=== PATIENT | female | born 1935 | race Caucasian/White ===

== ENCOUNTER 2017-12-18 11:58 | Emergency (ER) | payer OTHER ==
[~2017-12-18] VITALS: Ht 177.8 cm; Wt 130.6 kg
[~2017-12-18 11:58] MED LIST: ACTOS15 MG PO; ADVAIR 500/501 DISK IH; ADVAIR HFA120 INHALA IH; ALDACTONE25 MG PO; ASPIR-LOW81 MG PO; CARDIZEM90 MG PO; CARDURA4 MG PO; CEFTIN500 MG PO; COLACE100 MG PO; Cardizem CD,LA,Cartia,Tiazac,Dilacor,Taztia PO; DAPSONE25 MG PO; DIGOXIN250 MCG PO; DILTIAZEM 24HR120 MG PO; DILTIAZEM 24HR240 MG PO; DOXYCYCLINE HY100 M3 PO; DUONEB 2.5-0.5 M3 ML AEROSOL; ELIQUIS2.5 MG PO; ENDOCET 5-3251 EACH PO; FIORICET 50-301 EACH PO; FLONASE16 G1 BOTH NARES; FUROSEMIDE20 MG PO; FUROSEMIDE40 MG PO; GLIPIZIDE10 MG PO; GLUCOPHAGE XR,500 MG PO; GLUCOTROL XL10 MG PO; HYDROCODON-ACE1 EAC7 PO; HYZAAR 100-21 TABLET PO; ILOTYCIN1 GM RIGHT EYE; LEVOFLOXACIN500 MG PO; LOPRESSOR25 MG PO; LOPRESSOR50 MG PO; LORTAB 5-325 M1 EACH PO; LOSARTAN POTAS100 MG PO; LOVENOX40 MG/0.4 SC; METFORMIN HCL500 MG PO; METOPROLOL TART25 MG PO; MOTRIN600 MG PO; NORVASC10 MG PO; PRAVASTATIN SOD80 MG PO; PREDNISONE20 MG PO; PROAIR HFA8.5 GM IH; PROVENTIL,2.5 MG/0.5 IH; SPIRONOLACTONE25 MG PO; SYNTHROID50 MCG PO; THERA TEARS30 ML BOTH EYES; Tums,OsCal PO; VENTOLIN HFA18 GM IH; VIGAMOX 0.60 DROP/3 BOTH EYES; ZOCOR40 MG PO
[2017-12-18 12:38] LABS: HEMOGLOBIN 10.1 G/DL (11.9-15.5); MCHC 31.6 G/DL (30.0-36.0); RBC DIS.WIDTH-CV 14.6 % (11.8-14.6); RBC DIS.WIDTH-SD 47.2 % (39-53); RED BLOOD COUNT 3.61 M/uL (3.80-5.20); WHITE BLOOD COUNT 9.5 K/uL (4.1-10.2)
[2017-12-18 12:43] LABS: MCV 88.6 FL (83-99)
[2017-12-18 13:04] LABS: TROP-I INTERPRETATION NEGATIVE; TROPONIN-I 0.02 ng/mL (0.0-0.30)
[2017-12-18 13:05] LABS: CHLORIDE 88 MEQ/L (99-109); CREATININE 1.5 MG/DL (0.6-1.3); GFR ESTIMATE (CALCULATED) 35 mL/min/; GLUCOSE 94 mg/dL (70-99); SODIUM 127 MEQ/L (136-147); UREA NITROGEN (BUN) 33 mg/dL (9-23)
[2017-12-18 13:21] LABS: PLAT.SUFFICIENCY ADEQUATE; PLATELET COUNT 200 K/uL (156-360)
[2017-12-18 14:15] LABS: APPEARANCE CLEAR ((CLEAR)); BILIRUBIN NEGATIVE; BLOOD NEGATIVE; COLOR YELLOW ((YELLOW)); GLUCOSE (STRIP) NEGATIVE; KETONES NEGATIVE; LEUKOCYTES SMALL; NITRITE NEGATIVE; PROTEIN (STRIP) NEGATIVE; SPECIFIC GRAVITY 1.012 (1.000-1.030); UROBILINOGEN 0.2 MG/DL (0.2-1.0)
[2017-12-18 14:22] LABS: BACTERIA RARE /HPF; EPITHELIAL CELLS 2+ /HPF; HYALINE CASTS 0-5 /LPF; MUCUS TRACE /LPF; RED BLOOD CELLS 0-5 /HPF (0-5); UCUL ADDED? NO; WHITE BLOOD CELLS 0-5 /HPF (0-5)
[2017-12-18] MEDS ORDERED: BACTRIM,SEPT1 TABLET PO (14:24)
[2017-12-18 15:54] VITALS: BP 80/46
== END 2017-12-18 15:56 | disposition home or self-care (01) ==
LOC: EME → EDBD 11:58 → EME 11:58 → EDSEX 11:58 → EME 15:56
PROVIDERS: Emergency Medicine Emergency Medical Services
DX: R41.82 Altered mental status, unspecified (principal); T40.2X1A Poisoning by other opioids, accidental (unintentional), initial encounter; N39.0 Urinary tract infection, site not specified; G93.89 Other specified disorders of brain; R09.02 Hypoxemia; J44.1 Chronic obstructive pulmonary disease with (acute) exacerbation; I48.91 Unspecified atrial fibrillation; R94.31 Abnormal electrocardiogram [ECG] [EKG]; J90 Pleural effusion, not elsewhere classified; I10 Essential (primary) hypertension; E11.9 Type 2 diabetes mellitus without complications; K21.9 Gastro-esophageal reflux disease without esophagitis; E78.5 Hyperlipidemia, unspecified; F32.9 Major depressive disorder, single episode, unspecified; Z99.81 Dependence on supplemental oxygen; Z79.84 Long term (current) use of oral hypoglycemic drugs; Z79.891 Long term (current) use of opiate analgesic; Z79.01 Long term (current) use of anticoagulants; Z86.79 Personal history of other diseases of the circulatory system; Z98.890 Other specified postprocedural states; Z90.49 Acquired absence of other specified parts of digestive tract
CPT/HCPCS: 70450; 71046; 80048; 81003; 83880; 84484; 85027; 93005; 99281; 99284; J7040

== ENCOUNTER 2017-12-24 16:33 | Inpatient (IN) | payer OTHER ==
[~2017-12-24] VITALS: Ht 170.2 cm; Wt 138.2 kg
[~2017-12-24 16:33] MED LIST changes: +BACTRIM,SEPT1 TABLET PO; -METOPROLOL TART25 MG PO
[2017-12-24 18:13] LABS: HEMATOCRIT 30.2 % (36.0-46.0); HEMOGLOBIN 9.8 G/DL (11.9-15.5); MCH 27.8 PG (29.0-34.0); MCHC 32.5 G/DL (30.0-36.0); MCV 85.6 FL (83-99); RBC DIS.WIDTH-CV 14.6 % (11.8-14.6); RBC DIS.WIDTH-SD 45.6 % (39-53); RED BLOOD COUNT 3.53 M/uL (3.80-5.20); WHITE BLOOD COUNT 21.5 K/uL (4.1-10.2)
[2017-12-24 18:21] LABS: ALBUMIN 3.3 g/dL (3.2-4.8)
[2017-12-24 18:22] LABS: CHLORIDE 89 mEq/L (99-109); SODIUM 124 mEq/L (136-147)
[2017-12-24 18:24] LABS: TOTAL PROTEIN 6.5 g/dL (6.4-8.3)
[2017-12-24 18:25] LABS: GLUCOSE 52 mg/dL (70-99)
[2017-12-24 18:26] LABS: TOTAL BILIRUBIN 0.4 mg/dL (0.0-1.0)
[2017-12-24 18:27] LABS: ALKALINE PHOSPHATASE 70 IU/L (3-129)
[2017-12-24 18:28] LABS: CREATININE 1.7 mg/dL (0.6-1.3); GFR ESTIMATE (CALCULATED) 30 mL/min/
[2017-12-24 18:29] LABS: AST (GOT) 25 IU/L (2-34); UREA NITROGEN (BUN) 29 mg/dL (9-23)
[2017-12-24 18:31] LABS: ALT (GPT) 18 IU/L (3-49)
[2017-12-24 18:37] LABS: TROP-I INTERPRETATION NEGATIVE; TROPONIN-I 0.01 ng/mL (0.0-0.30)
[2017-12-24] MEDS ORDERED: COZAAR100 MG PO (18:49)
[2017-12-24] MEDS ORDERED: LASIX40 MG PO (18:59)
[2017-12-24] MEDS ORDERED: CARDIZEM CD,CA240 MG PO (19:06)
[2017-12-24] MEDS ORDERED: TYLENOL EXTRA500 MG PO (19:07)
[2017-12-24] MEDS ORDERED: BENADRYL ALLERG25 MG PO (19:08)
[2017-12-24] MEDS ORDERED: SLEEP AID25 M1 PO (19:09)
[2017-12-24 19:23] LABS: THYROTROPIN (TSH) 2.2 MIU/L (0.4-5.5)
[2017-12-24 19:25] LABS: PLAT.SUFFICIENCY ADEQUATE; PLATELET COUNT 218 K/uL (156-360)
[2017-12-24 20:00] LABS: APPEARANCE CLEAR ((CLEAR)); BILIRUBIN NEGATIVE; BLOOD NEGATIVE; COLOR YELLOW ((YELLOW)); GLUCOSE (STRIP) NEGATIVE; KETONES NEGATIVE; LEUKOCYTES NEGATIVE; NITRITE NEGATIVE; PROTEIN (STRIP) NEGATIVE; SPECIFIC GRAVITY 1.013 (1.000-1.030); UCUL ADDED? NO
[2017-12-25] VITALS (22 sets, daily range): BP systolic 80–144; BP diastolic 22–100
[2017-12-25 05:34] LABS: HEMATOCRIT 28.1 % (36.0-46.0); HEMOGLOBIN 8.8 G/DL (11.9-15.5); MCH 26.6 PG (29.0-34.0); MCHC 31.3 G/DL (30.0-36.0); MCV 84.9 FL (83-99); PLATELET COUNT 212 K/uL (156-360); RBC DIS.WIDTH-CV 14.7 % (11.8-14.6); RBC DIS.WIDTH-SD 45.8 % (39-53); RED BLOOD COUNT 3.31 M/uL (3.80-5.20); WHITE BLOOD COUNT 11.1 K/uL (4.1-10.2)
[2017-12-25 06:13] LABS: CHLORIDE 90 MEQ/L (99-109); CREATININE 1.6 MG/DL (0.6-1.3); GFR ESTIMATE (CALCULATED) 33 mL/min/; PHOSPHORUS 3.9 mg/dL (2.5-4.9); POTASSIUM 5.1 MEQ/L (3.7-5.4); SODIUM 125 MEQ/L (136-147); UREA NITROGEN (BUN) 28 mg/dL (9-23)
[2017-12-25 06:16] LABS: GLUCOSE 107 mg/dL (70-99)
[2017-12-26] VITALS (22 sets, daily range): BP systolic 82–141; BP diastolic 42–97
[2017-12-26 10:19] LABS: HEMOGLOBIN A1c (GLYCOHEMOGLOB) 6.1 % (Below 5.7)
[2017-12-26 10:42] LABS: BASOPHIL (%) 0 % (0-1); EOSINOPHIL (%) 0 % (0-5); HEMATOCRIT 32.2 % (36.0-46.0); HEMOGLOBIN 10.1 G/DL (11.9-15.5); IMMATURE GRANULOCYTE (%) 0.5 % (0.0-0.7); LYMPHOCYTE (%) 4.5 % (15-42); LYMPHOCYTE COUNT 0.3 K/uL (1.0-2.8); MCH 27.2 PG (29.0-34.0); MCHC 31.4 G/DL (30.0-36.0); MCV 86.8 FL (83-99); MONOCYTE COUNT 0.2 K/uL (0-0.8); NEUTROPHIL COUNT 6.8 K/uL (1.8-6.4); PLATELET COUNT 229 K/uL (156-360); RBC DIS.WIDTH-CV 14.9 % (11.8-14.6); RBC DIS.WIDTH-SD 47.7 % (39-53); RED BLOOD COUNT 3.71 M/uL (3.80-5.20); WHITE BLOOD COUNT 7.3 K/uL (4.1-10.2)
[2017-12-26 11:03] LABS: CHLORIDE 91 MEQ/L (99-109); CREATININE 1.5 MG/DL (0.6-1.3); GFR ESTIMATE (CALCULATED) 35 mL/min/; GLUCOSE 225 mg/dL (70-99); MAGNESIUM 2.1 mg/dl (1.3-2.7); PHOSPHORUS 3.9 mg/dL (2.5-4.9); POTASSIUM 5.6 MEQ/L (3.7-5.4); SODIUM 124 MEQ/L (136-147); UREA NITROGEN (BUN) 24 mg/dL (9-23)
[2017-12-26 19:16] LABS: BASE EXCESS -1.8 mEq/L (-3 to +3); CARBOXY HGB 1.9 % (0-5); PCO2 69 mm Hg (35-45); PO2 76 mm Hg (80-100)
[2017-12-26 19:18] LABS: COMMENTS - BLOOD GASES A+C+; DEVICE VENTI; FI02 50 %; O2 FLOW 12 L/MIN; SITE RR; TOTAL RESP RATE 16 resp/min
[2017-12-26 23:09] LABS: CHLORIDE 91 MEQ/L (99-109); CREATININE 1.7 MG/DL (0.6-1.3); GFR ESTIMATE (CALCULATED) 30 mL/min/; GLUCOSE 262 mg/dL (70-99); POTASSIUM 5.7 MEQ/L (3.7-5.4); SODIUM 123 MEQ/L (136-147); TRIGLYCERIDES 110 MG/DL (Normal: <150); UREA NITROGEN (BUN) 31 mg/dL (9-23)
[2017-12-26 23:22] LABS: PCO2 51 mm Hg (35-45); PO2 80 mm Hg (80-100); pH 7.32 (7.35-7.45)
[2017-12-26 23:23] LABS: BASE EXCESS -0.2 mEq/L (-3 to +3); BICARBONATE 26.3 mEq/L (22-26); CARBOXY HGB 1.2 % (0-5); COMMENTS - BLOOD GASES C+A+; DEVICE VENTILATOR; FI02 50 %; MECHANICAL RATE 16 resp/min; METHEMOGLOBIN 0.9 % (0-1.5); MODE AC; PEEP 5 CM/H20; SITE RB; TIDAL VOLUME 400 ML; TOTAL RESP RATE 16 resp/min
[2017-12-27] VITALS (23 sets, daily range): BP systolic 91–132; BP diastolic 48–74
[2017-12-27 01:40] LABS: INTER. NORMALIZED RATIO 1.1
[2017-12-27 01:42] LABS: PTT 26.7 SEC (25-37)
[2017-12-27 05:32] LABS: BASE EXCESS -1.4 mEq/L (-3 to +3); BICARBONATE 25.5 mEq/L (22-26); CARBOXY HGB 2.3 % (0-5); COMMENTS - BLOOD GASES C+A+; METHEMOGLOBIN 0.6 % (0-1.5); PCO2 53 mm Hg (35-45); PO2 65 mm Hg (80-100); SITE RB
[2017-12-27 05:33] LABS: DEVICE VENTILATOR; FI02 50 %; MECHANICAL RATE 16 resp/min; MODE AC; PEEP 5 CM/H20; TIDAL VOLUME 400 ML; TOTAL RESP RATE 18 resp/min; pH 7.29 (7.35-7.45)
[2017-12-27 05:39] LABS: BASOPHIL (%) 0 % (0-1); EOSINOPHIL (%) 0.1 % (0-5); HEMATOCRIT 32.6 % (36.0-46.0); HEMOGLOBIN 9.8 G/DL (11.9-15.5); LYMPHOCYTE (%) 3.9 % (15-42); LYMPHOCYTE COUNT 0.3 K/uL (1.0-2.8); MCH 26.6 PG (29.0-34.0); MCHC 30.1 G/DL (30.0-36.0); MCV 88.3 FL (83-99); MONOCYTE (%) 6.7 % (3-12); MONOCYTE COUNT 0.6 K/uL (0-0.8); NEUTROPHIL (%) 88.3 % (45-76); NEUTROPHIL COUNT 7.2 K/uL (1.8-6.4); PLATELET COUNT 209 K/uL (156-360); RBC DIS.WIDTH-CV 14.7 % (11.8-14.6); RBC DIS.WIDTH-SD 47.7 % (39-53); RED BLOOD COUNT 3.69 M/uL (3.80-5.20); WHITE BLOOD COUNT 8.2 K/uL (4.1-10.2)
[2017-12-27 06:03] LABS: ALKALINE PHOSPHATASE 45 IU/L (3-129); ALT (GPT) 20 IU/L (3-49); AST (GOT) 17 IU/L (2-34); CHLORIDE 91 MEQ/L (99-109); CREATININE 1.9 MG/DL (0.6-1.3); GFR ESTIMATE (CALCULATED) 27 mL/min/; GLUCOSE 235 mg/dL (70-99); MAGNESIUM 2.2 mg/dl (1.3-2.7); PHOSPHORUS 4.4 mg/dL (2.5-4.9); POTASSIUM 5.3 MEQ/L (3.7-5.4); SODIUM 124 MEQ/L (136-147); TOTAL BILIRUBIN 0.5 MG/DL (0.0-1.0); TOTAL PROTEIN 5.9 G/DL (6.4-8.3); UREA NITROGEN (BUN) 35 mg/dL (9-23)
[2017-12-28] VITALS (22 sets, daily range): BP systolic 94–158; BP diastolic 47–82
[2017-12-28 05:08] LABS: BASE EXCESS 0.8 mEq/L (-3 to +3); BICARBONATE 25.3 mEq/L (22-26); CARBOXY HGB 1.2 % (0-5); COMMENTS - BLOOD GASES C+A+; DEVICE VENTILATOR; FI02 30 %; METHEMOGLOBIN 0.5 % (0-1.5); MODE AC; PCO2 39 mm Hg (35-45); PO2 97 mm Hg (80-100); SITE RR; pH 7.42 (7.35-7.45)
[2017-12-28 05:09] LABS: MECHANICAL RATE 16 resp/min; PEEP 5 CM/H20; TIDAL VOLUME 400 ML; TOTAL RESP RATE 16 resp/min
[2017-12-28 05:15] LABS: BASOPHIL (%) 0 % (0-1); EOSINOPHIL (%) 0.1 % (0-5); HEMATOCRIT 31.9 % (36.0-46.0); IMMATURE GRANULOCYTE (%) 0.6 % (0.0-0.7); LYMPHOCYTE COUNT 0.3 K/uL (1.0-2.8); MCH 26.7 PG (29.0-34.0); MCHC 31.3 G/DL (30.0-36.0); MCV 85.3 FL (83-99); MONOCYTE (%) 5.9 % (3-12); MONOCYTE COUNT 0.5 K/uL (0-0.8); NEUTROPHIL (%) 89.4 % (45-76); NEUTROPHIL COUNT 7.1 K/uL (1.8-6.4); PLATELET COUNT 225 K/uL (156-360); RBC DIS.WIDTH-CV 14.6 % (11.8-14.6); RBC DIS.WIDTH-SD 45.7 % (39-53); RED BLOOD COUNT 3.74 M/uL (3.80-5.20); WHITE BLOOD COUNT 7.9 K/uL (4.1-10.2)
[2017-12-28 05:44] LABS: ALBUMIN 3.2 G/DL (3.2-4.8); ALKALINE PHOSPHATASE 48 IU/L (3-129); ALT (GPT) 26 IU/L (3-49); AST (GOT) 21 IU/L (2-34); CHLORIDE 97 MEQ/L (99-109); GLUCOSE 205 mg/dL (70-99); POTASSIUM 4.8 MEQ/L (3.7-5.4); SODIUM 129 MEQ/L (136-147); TOTAL PROTEIN 5.9 G/DL (6.4-8.3); UREA NITROGEN (BUN) 30 mg/dL (9-23)
[2017-12-28 05:55] LABS: CREATININE 1.3 MG/DL (0.6-1.3); GFR ESTIMATE (CALCULATED) 41 mL/min/; TOTAL BILIRUBIN 0.8 MG/DL (0.0-1.0)
[2017-12-28 15:17] LABS: HIGH-SENS C-REACTIVE PROTEIN 0.55 MG/DL (0.02-0.20)
[2017-12-28 20:55] LABS: BICARBONATE 25.3 mEq/L (22-26); CARBOXY HGB 1.2 % (0-5); COMMENTS - BLOOD GASES C+; DEVICE NC; METHEMOGLOBIN 1.3 % (0-1.5); O2 FLOW 3 L/MIN; PCO2 48 mm Hg (35-45); PO2 84 mm Hg (80-100); SITE LR; pH 7.33 (7.35-7.45)
[2017-12-29] VITALS (14 sets, daily range): BP systolic 103–152; BP diastolic 54–87
[2017-12-29 05:38] LABS: BASOPHIL (%) 0 % (0-1); EOSINOPHIL (%) 0 % (0-5); HEMATOCRIT 32.8 % (36.0-46.0); HEMOGLOBIN 10.1 G/DL (11.9-15.5); IMMATURE GRANULOCYTE (%) 0.6 % (0.0-0.7); LYMPHOCYTE (%) 2.8 % (15-42); LYMPHOCYTE COUNT 0.2 K/uL (1.0-2.8); MCH 26.6 PG (29.0-34.0); MCHC 30.8 G/DL (30.0-36.0); MCV 86.5 FL (83-99); MONOCYTE (%) 5.3 % (3-12); MONOCYTE COUNT 0.5 K/uL (0-0.8); NEUTROPHIL (%) 91.3 % (45-76); NEUTROPHIL COUNT 7.9 K/uL (1.8-6.4); PLATELET COUNT 238 K/uL (156-360); RBC DIS.WIDTH-CV 14.8 % (11.8-14.6); RBC DIS.WIDTH-SD 47.4 % (39-53); RED BLOOD COUNT 3.79 M/uL (3.80-5.20); WHITE BLOOD COUNT 8.6 K/uL (4.1-10.2)
[2017-12-29 06:02] LABS: ALBUMIN 3.2 G/DL (3.2-4.8); ALKALINE PHOSPHATASE 46 IU/L (3-129); ALT (GPT) 50 IU/L (3-49); AST (GOT) 39 IU/L (2-34); CHLORIDE 98 MEQ/L (99-109); CREATININE 1.3 MG/DL (0.6-1.3); GFR ESTIMATE (CALCULATED) 41 mL/min/; GLUCOSE 213 mg/dL (70-99); MAGNESIUM 2.4 mg/dl (1.3-2.7); PHOSPHORUS 3.9 mg/dL (2.5-4.9); POTASSIUM 4.5 MEQ/L (3.7-5.4); SODIUM 131 MEQ/L (136-147); TOTAL PROTEIN 5.9 G/DL (6.4-8.3); UREA NITROGEN (BUN) 32 mg/dL (9-23)
[2017-12-29 06:24] LABS: HIGH-SENS C-REACTIVE PROTEIN 0.39 MG/DL (0.02-0.20)
[2017-12-29 11:12] LABS: HEPATITIS B SURFACE ANTIGEN Nonreactive; HEPATITIS C ANTIBODY Nonreactive
[2017-12-29 11:13] LABS: ANTI-HEPATITIS A VIRUS (IGM) Nonreactive
[2017-12-29 11:14] LABS: ANTI-HEPATITIS B CORE (IGM) Nonreactive
[2017-12-29 14:44] LABS: COMMENTS - BLOOD GASES A+C+; O2 FLOW 3 L/MIN; SITE R RADIAL
[2017-12-29 14:45] LABS: DEVICE NASCAN; PCO2 58 mm Hg (35-45); PO2 64 mm Hg (80-100); TOTAL RESP RATE 26 resp/min; pH 7.24 (7.35-7.45)
[2017-12-29 14:46] LABS: BASE EXCESS -3.1 mEq/L (-3 to +3); BICARBONATE 24.9 mEq/L (22-26); CARBOXY HGB 1.7 % (0-5); METHEMOGLOBIN 0.9 % (0-1.5)
[2017-12-29 16:24] LABS: COMMENTS - BLOOD GASES A+C+; DEVICE MASK VENT; FI02 30 %; MODE PRESSURE SUP; SITE R RADIAL; TOTAL RESP RATE 16 resp/min
[2017-12-29 16:25] LABS: BICARBONATE 24.7 mEq/L (22-26); CARBOXY HGB 1.5 % (0-5); METHEMOGLOBIN 0.8 % (0-1.5); PCO2 48 mm Hg (35-45); PEEP 5 CM/H20; PO2 93 mm Hg (80-100); PRES. SUPPORT 12 CM/H2O; pH 7.32 (7.35-7.45)
[2017-12-29 16:26] LABS: BASE EXCESS -1.6 mEq/L (-3 to +3)
[2017-12-30] VITALS (20 sets, daily range): BP systolic 97–167; BP diastolic 43–83
[2017-12-30 05:29] LABS: BASOPHIL (%) 0 % (0-1); EOSINOPHIL (%) 0 % (0-5); HEMATOCRIT 31.6 % (36.0-46.0); HEMOGLOBIN 9.9 G/DL (11.9-15.5); IMMATURE GRANULOCYTE (%) 0.7 % (0.0-0.7); LYMPHOCYTE (%) 2.9 % (15-42); LYMPHOCYTE COUNT 0.2 K/uL (1.0-2.8); MCH 26.8 PG (29.0-34.0); MCHC 31.3 G/DL (30.0-36.0); MCV 85.4 FL (83-99); MONOCYTE (%) 4.4 % (3-12); MONOCYTE COUNT 0.4 K/uL (0-0.8); NEUTROPHIL COUNT 7.4 K/uL (1.8-6.4); PLATELET COUNT 208 K/uL (156-360); RBC DIS.WIDTH-CV 14.8 % (11.8-14.6); RBC DIS.WIDTH-SD 46.5 % (39-53)
[2017-12-30 05:57] LABS: ALBUMIN 3.1 G/DL (3.2-4.8); ALKALINE PHOSPHATASE 36 IU/L (3-129); ALT (GPT) 68 IU/L (3-49); AST (GOT) 42 IU/L (2-34); CHLORIDE 100 MEQ/L (99-109); CREATININE 1.2 MG/DL (0.6-1.3); GFR ESTIMATE (CALCULATED) 45 mL/min/; GLUCOSE 199 mg/dL (70-99); MAGNESIUM 2.3 mg/dl (1.3-2.7); PHOSPHORUS 3.8 mg/dL (2.5-4.9); POTASSIUM 4.2 MEQ/L (3.7-5.4); SODIUM 134 MEQ/L (136-147); TOTAL BILIRUBIN 0.8 MG/DL (0.0-1.0); TOTAL PROTEIN 5.7 G/DL (6.4-8.3); UREA NITROGEN (BUN) 37 mg/dL (9-23)
[2017-12-30 16:53] LABS: HSV-1 IgG Antibody 3.3 Index (<0.90); HSV-2 IgG Antibody 0.98 Index (<0.90)
[2017-12-31] VITALS (18 sets, daily range): BP systolic 119–163; BP diastolic 48–83
[2017-12-31 05:08] LABS: BASOPHIL (%) 0.1 % (0-1); EOSINOPHIL (%) 0 % (0-5); HEMATOCRIT 34.5 % (36.0-46.0); HEMOGLOBIN 11.1 G/DL (11.9-15.5); IMMATURE GRANULOCYTE (%) 1.1 % (0.0-0.7); LYMPHOCYTE (%) 1.5 % (15-42); LYMPHOCYTE COUNT 0.2 K/uL (1.0-2.8); MCHC 32.2 G/DL (30.0-36.0); MCV 86.9 FL (83-99); MONOCYTE (%) 4.7 % (3-12); MONOCYTE COUNT 0.7 K/uL (0-0.8); NEUTROPHIL (%) 92.6 % (45-76); NEUTROPHIL COUNT 14.5 K/uL (1.8-6.4); PLATELET COUNT 225 K/uL (156-360); RBC DIS.WIDTH-SD 47.8 % (39-53); RED BLOOD COUNT 3.97 M/uL (3.80-5.20); WHITE BLOOD COUNT 15.6 K/uL (4.1-10.2)
[2017-12-31 05:14] LABS: ALBUMIN 3.2 g/dL (3.2-4.8); SODIUM 133 mEq/L (136-147)
[2017-12-31 05:15] LABS: CHLORIDE 102 mEq/L (99-109); POTASSIUM 5.2 mEq/L (3.7-5.4)
[2017-12-31 05:17] LABS: GLUCOSE 220 mg/dL (70-99); TOTAL PROTEIN 6.4 g/dL (6.4-8.3)
[2017-12-31 05:19] LABS: TOTAL BILIRUBIN 0.6 mg/dL (0.0-1.0)
[2017-12-31 05:20] LABS: ALKALINE PHOSPHATASE 47 IU/L (3-129); PHOSPHORUS 4.7 mg/dL (2.5-4.9)
[2017-12-31 05:21] LABS: CREATININE 1.5 mg/dL (0.6-1.3); GFR ESTIMATE (CALCULATED) 35 mL/min/
[2017-12-31 05:22] LABS: AST (GOT) 90 IU/L (2-34); UREA NITROGEN (BUN) 55 mg/dL (9-23)
[2017-12-31 05:26] LABS: ALT (GPT) 149 IU/L (3-49)
[2017-12-31 15:30] LABS: O2 SATURATION (CALCULATED) 94.7 % (95-99); PCO2 60 mm Hg (35-45); PO2 85 mm Hg (80-100); pH 7.26 (7.35-7.45)
[2017-12-31 15:31] LABS: BICARBONATE 26.9 mEq/L (22-26); CARBOXY HGB 1.5 % (0-5); COMMENTS - BLOOD GASES A+C+; DEVICE PB VENT MASK; FI02 30 %; METHEMOGLOBIN 1.2 % (0-1.5); MODE SPONT NIV; PRES. SUPPORT 12 CM/H2O; SITE RR; TOTAL RESP RATE 18 resp/min
[2017-12-31 15:32] LABS: PEEP 5 CM/H20
[2017-12-31 17:19] LABS: HIGH-SENS C-REACTIVE PROTEIN 0.42 MG/DL (0.02-0.20)
[2017-12-31 18:37] LABS: COMMENTS - BLOOD GASES A+C+; DEVICE NC; O2 FLOW 2 L/MIN; SITE RR; TOTAL RESP RATE 26 resp/min
[2017-12-31 18:38] LABS: BASE EXCESS -0.6 mEq/L (-3 to +3); BICARBONATE 27.6 mEq/L (22-26); CARBOXY HGB 1.6 % (0-5); METHEMOGLOBIN 0.9 % (0-1.5); PCO2 63 mm Hg (35-45); PO2 68 mm Hg (80-100); pH 7.25 (7.35-7.45)
[2017-12-31 20:23] LABS: BASE EXCESS -1.5 mEq/L (-3 to +3); BICARBONATE 25.8 mEq/L (22-26); CARBOXY HGB 1.1 % (0-5); METHEMOGLOBIN 1.5 % (0-1.5); O2 SATURATION (CALCULATED) 98.5 % (95-99); PCO2 55 mm Hg (35-45); PO2 164 mm Hg (80-100); SITE RB; pH 7.28 (7.35-7.45)
[2017-12-31 20:24] LABS: DEVICE VENT; FI02 50 %; MECHANICAL RATE 16 resp/min; MODE AC; TIDAL VOLUME 450 ML; TOTAL RESP RATE 16 resp/min
[2017-12-31 20:25] LABS: PEEP 5 CM/H20
[2018-01-01] VITALS (17 sets, daily range): BP systolic 116–155; BP diastolic 46–87
[2018-01-01 05:35] LABS: BASOPHIL (%) 0.1 % (0-1); EOSINOPHIL (%) 0 % (0-5); HEMATOCRIT 33.3 % (36.0-46.0); HEMOGLOBIN 10.5 G/DL (11.9-15.5); LYMPHOCYTE (%) 2.2 % (15-42); LYMPHOCYTE COUNT 0.3 K/uL (1.0-2.8); MCH 26.6 PG (29.0-34.0); MCHC 31.5 G/DL (30.0-36.0); MCV 84.5 FL (83-99); MONOCYTE COUNT 0.5 K/uL (0-0.8); NEUTROPHIL (%) 92.7 % (45-76); NEUTROPHIL COUNT 11.7 K/uL (1.8-6.4); PLATELET COUNT 177 K/uL (156-360); RBC DIS.WIDTH-CV 14.9 % (11.8-14.6); RBC DIS.WIDTH-SD 45.6 % (39-53); RED BLOOD COUNT 3.94 M/uL (3.80-5.20); WHITE BLOOD COUNT 12.7 K/uL (4.1-10.2)
[2018-01-01 06:26] LABS: ALBUMIN 2.9 G/DL (3.2-4.8); ALKALINE PHOSPHATASE 38 IU/L (3-129); CHLORIDE 100 MEQ/L (99-109); CREATININE 1.5 MG/DL (0.6-1.3); GFR ESTIMATE (CALCULATED) 35 mL/min/; GLUCOSE 210 mg/dL (70-99); MAGNESIUM 2.3 mg/dl (1.3-2.7); PHOSPHORUS 3.8 mg/dL (2.5-4.9); POTASSIUM 4.4 MEQ/L (3.7-5.4); SODIUM 135 MEQ/L (136-147); TOTAL PROTEIN 5.3 G/DL (6.4-8.3); UREA NITROGEN (BUN) 57 mg/dL (9-23)
[2018-01-01 06:27] LABS: ALT (GPT) 158 IU/L (3-49); AST (GOT) 74 IU/L (2-34)
[2018-01-01 16:06] LABS: CARBOXY HGB 0.7 % (0-5); O2 SATURATION (CALCULATED) 93.6 % (95-99); PCO2 41 mm Hg (35-45); PO2 73 mm Hg (80-100)
[2018-01-01 16:07] LABS: BASE EXCESS 0.5 mEq/L (-3 to +3); BICARBONATE 25.4 mEq/L (22-26); METHEMOGLOBIN 2.2 % (0-1.5)
[2018-01-01 16:26] LABS: HIGH-SENS C-REACTIVE PROTEIN 0.63 MG/DL (0.02-0.20)
[2018-01-02] VITALS (18 sets, daily range): BP systolic 125–170; BP diastolic 5–92
[2018-01-02 05:34] LABS: BASOPHIL (%) 0.1 % (0-1); EOSINOPHIL (%) 0 % (0-5); HEMATOCRIT 33.6 % (36.0-46.0); HEMOGLOBIN 10.8 G/DL (11.9-15.5); IMMATURE GRANULOCYTE (%) 0.9 % (0.0-0.7); LYMPHOCYTE (%) 1.6 % (15-42); LYMPHOCYTE COUNT 0.2 K/uL (1.0-2.8); MCH 26.8 PG (29.0-34.0); MCHC 32.1 G/DL (30.0-36.0); MCV 83.4 FL (83-99); MONOCYTE (%) 4.5 % (3-12); MONOCYTE COUNT 0.6 K/uL (0-0.8); NEUTROPHIL (%) 92.9 % (45-76); NEUTROPHIL COUNT 11.4 K/uL (1.8-6.4); PLATELET COUNT 158 K/uL (156-360); RBC DIS.WIDTH-CV 15.3 % (11.8-14.6); RBC DIS.WIDTH-SD 46.5 % (39-53); RED BLOOD COUNT 4.03 M/uL (3.80-5.20); WHITE BLOOD COUNT 12.3 K/uL (4.1-10.2)
[2018-01-02 05:50] LABS: ALBUMIN 2.8 G/DL (3.2-4.8); ALKALINE PHOSPHATASE 41 IU/L (3-129); ALT (GPT) 176 IU/L (3-49); AST (GOT) 67 IU/L (2-34); CHLORIDE 104 MEQ/L (99-109); CREATININE 1.2 MG/DL (0.6-1.3); GFR ESTIMATE (CALCULATED) 45 mL/min/; GLUCOSE 238 mg/dL (70-99); MAGNESIUM 2.2 mg/dl (1.3-2.7); PHOSPHORUS 4.1 mg/dL (2.5-4.9); POTASSIUM 3.8 MEQ/L (3.7-5.4); SODIUM 139 MEQ/L (136-147); TOTAL PROTEIN 5.3 G/DL (6.4-8.3); UREA NITROGEN (BUN) 47 mg/dL (9-23)
[2018-01-03] VITALS (23 sets, daily range): BP systolic 13–183; BP diastolic 54–97
[2018-01-03 06:19] LABS: BASOPHIL (%) 0.1 % (0-1); EOSINOPHIL (%) 0 % (0-5); HEMATOCRIT 31.1 % (36.0-46.0); HEMOGLOBIN 10.1 G/DL (11.9-15.5); LYMPHOCYTE (%) 1.8 % (15-42); LYMPHOCYTE COUNT 0.2 K/uL (1.0-2.8); MCH 27.3 PG (29.0-34.0); MCHC 32.5 G/DL (30.0-36.0); MCV 84.1 FL (83-99); MONOCYTE COUNT 0.7 K/uL (0-0.8); NEUTROPHIL (%) 92.1 % (45-76); NEUTROPHIL COUNT 11.9 K/uL (1.8-6.4); PLATELET COUNT 165 K/uL (156-360); RBC DIS.WIDTH-CV 15.5 % (11.8-14.6); RBC DIS.WIDTH-SD 47.4 % (39-53); WHITE BLOOD COUNT 12.9 K/uL (4.1-10.2)
[2018-01-03 06:29] LABS: ALBUMIN 2.7 G/DL (3.2-4.8); ALKALINE PHOSPHATASE 36 IU/L (3-129); ALT (GPT) 180 IU/L (3-49); AST (GOT) 54 IU/L (2-34); CHLORIDE 106 MEQ/L (99-109); CREATININE 1.1 MG/DL (0.6-1.3); GFR ESTIMATE (CALCULATED) 50 mL/min/; GLUCOSE 315 mg/dL (70-99); MAGNESIUM 2.2 mg/dl (1.3-2.7); PHOSPHORUS 2.8 mg/dL (2.5-4.9); POTASSIUM 3.4 MEQ/L (3.7-5.4); SODIUM 142 MEQ/L (136-147); TOTAL BILIRUBIN 0.9 MG/DL (0.0-1.0); TOTAL PROTEIN 5.1 G/DL (6.4-8.3); UREA NITROGEN (BUN) 44 mg/dL (9-23)
[2018-01-03 12:02] LABS: ANTI-DOUBLE STRANDED DNA 11 U/mL (0-99); SCL-70 (SCLERODERMA) ANTIBODY 3 U/mL (0-99)
[2018-01-03 13:45] LABS: COMMENTS - BLOOD GASES A+C+; DEVICE 840 PB; FI02 30 %; MODE TC; O2 FLOW 50 L/MIN; PEEP 5 CM/H20; SITE RR; TOTAL RESP RATE 20 resp/min
[2018-01-03 13:46] LABS: BASE EXCESS -0.8 mEq/L (-3 to +3); BICARBONATE 26.1 mEq/L (22-26); CARBOXY HGB 2.4 % (0-5); METHEMOGLOBIN 0.6 % (0-1.5); PCO2 53 mm Hg (35-45); PO2 59 mm Hg (80-100)
[2018-01-04] VITALS (21 sets, daily range): BP systolic 104–172; BP diastolic 51–105
[2018-01-04 05:01] LABS: BASOPHIL (%) 0.1 % (0-1); EOSINOPHIL (%) 0 % (0-5); HEMOGLOBIN 10.5 G/DL (11.9-15.5); IMMATURE GRANULOCYTE (%) 0.8 % (0.0-0.7); LYMPHOCYTE (%) 1.3 % (15-42); LYMPHOCYTE COUNT 0.2 K/uL (1.0-2.8); MCHC 32.8 G/DL (30.0-36.0); MCV 85.3 FL (83-99); MONOCYTE (%) 4.3 % (3-12); MONOCYTE COUNT 0.8 K/uL (0-0.8); NEUTROPHIL (%) 93.5 % (45-76); NEUTROPHIL COUNT 17.1 K/uL (1.8-6.4); PLATELET COUNT 167 K/uL (156-360); RBC DIS.WIDTH-CV 15.7 % (11.8-14.6); RED BLOOD COUNT 3.75 M/uL (3.80-5.20); WHITE BLOOD COUNT 18.3 K/uL (4.1-10.2)
[2018-01-04 05:27] LABS: CHLORIDE 107 mEq/L (99-109); SODIUM 143 mEq/L (136-147)
[2018-01-04 05:30] LABS: GLUCOSE 314 mg/dL (70-99)
[2018-01-04 05:33] LABS: ALKALINE PHOSPHATASE 45 IU/L (3-129)
[2018-01-04 05:34] LABS: CREATININE 1.2 mg/dL (0.6-1.3); GFR ESTIMATE (CALCULATED) 45 mL/min/
[2018-01-04 05:35] LABS: AST (GOT) 59 IU/L (2-34); UREA NITROGEN (BUN) 59 mg/dL (9-23)
[2018-01-04 05:37] LABS: ALT (GPT) 217 IU/L (3-49)
[2018-01-04 05:38] LABS: MAGNESIUM 2.3 mg/dL (1.3-2.7); PHOSPHORUS 2.9 mg/dL (2.5-4.9); POTASSIUM 4.2 mEq/L (3.7-5.4); TOTAL BILIRUBIN 0.9 mg/dL (0.0-1.0); TOTAL PROTEIN 5.4 g/dL (6.4-8.3)
[2018-01-04 14:58] LABS: ANTI-CYCLC CITRULLINATED PEPT+ 30 Units (<20)
[2018-01-04 17:43] LABS: PROTEINASE-3 ANTIBODY+ <1.0 AI (<1.0)
[2018-01-04 17:44] LABS: C DIFF TOXIN POSITIVE (NEGATIVE)
[2018-01-05] VITALS: BP 95/80
[2018-01-05 01:00] VITALS: BP 136/79
[2018-01-05 03:00] VITALS: BP 150/66
[2018-01-05 04:00] VITALS: BP 136/76
[2018-01-05 05:00] VITALS: BP 149/82
[2018-01-05 06:00] VITALS: BP 177/81
[2018-01-07 00:27] VITALS: BP 00/00
== END 2018-01-07 05:39 | DRG 853 ==
LOC: EME 16:33 → 4WEST 21:36 → EDOF 21:36 → ENRESERV 21:37 → 4WEST 12-25 02:07 → ENRESERV 01-05 15:06 → 5EAST 01-05 16:29
PROVIDERS: Emergency Medicine Emergency Medical Services; Internal Medicine; Internal Medicine Pulmonary Disease; Specialist; Surgery
PROC: 5A1945Z Respiratory Ventilation, 24-96 Consecutive Hours (ICD-10-PCS; principal; 2017-12-26)
PROC: 0BH17EZ Insertion of Endotracheal Airway into Trachea, Via Natural or Artificial Opening (ICD-10-PCS; principal; 2017-12-26)
PROC: 02HV33Z Insertion of Infusion Device into Superior Vena Cava, Percutaneous Approach (ICD-10-PCS; 2017-12-27)
PROC: 5A09357 Assistance with Respiratory Ventilation, Less than 24 Consecutive Hours, Continuous Positive Airway Pressure (ICD-10-PCS; 2017-12-28)
PROC: 5A1955Z Respiratory Ventilation, Greater than 96 Consecutive Hours (ICD-10-PCS; 2017-12-31)
PROC: 0BH18EZ Insertion of Endotracheal Airway into Trachea, Via Natural or Artificial Opening Endoscopic (ICD-10-PCS; 2017-12-31)
PROC: 0B9C8ZX Drainage of Right Upper Lung Lobe, Via Natural or Artificial Opening Endoscopic, Diagnostic (ICD-10-PCS; 2018-01-01)
PROC: 0B9F8ZX Drainage of Right Lower Lung Lobe, Via Natural or Artificial Opening Endoscopic, Diagnostic (ICD-10-PCS; 2018-01-01)
DX: A41.9 Sepsis, unspecified organism (principal); J69.0 Pneumonitis due to inhalation of food and vomit; E86.0 Dehydration; E87.1 Hypo-osmolality and hyponatremia; E87.5 Hyperkalemia; E11.649 Type 2 diabetes mellitus with hypoglycemia without coma; G93.40 Encephalopathy, unspecified; I12.9 Hypertensive chronic kidney disease with stage 1 through stage 4 chronic kidney disease, or unspecified chronic kidney disease; I50.33 Acute on chronic diastolic (congestive) heart failure; N18.3 Chronic kidney disease, stage 3 (moderate); E87.2 Acidosis; J96.21 Acute and chronic respiratory failure with hypoxia; J96.22 Acute and chronic respiratory failure with hypercapnia; Z99.81 Dependence on supplemental oxygen; A04.72 Enterocolitis due to Clostridium difficile, not specified as recurrent; J44.9 Chronic obstructive pulmonary disease, unspecified; I48.2 Chronic atrial fibrillation; I08.1 Rheumatic disorders of both mitral and tricuspid valves; I27.20 Pulmonary hypertension, unspecified; R91.8 Other nonspecific abnormal finding of lung field; E03.9 Hypothyroidism, unspecified; K43.9 Ventral hernia without obstruction or gangrene; Z51.5 Encounter for palliative care; Z66 Do not resuscitate; R29.6 Repeated falls; E66.9 Obesity, unspecified; Z68.42 Body mass index [BMI] 45.0-49.9, adult; Z87.891 Personal history of nicotine dependence; Z91.81 History of falling; Z79.84 Long term (current) use of oral hypoglycemic drugs; Z79.01 Long term (current) use of anticoagulants
CPT/HCPCS: 36600; 70450; 70551; 71045; 71250; 74176; 80048; 80048 91; 80053; 80074; 80202; 81003; 82140; 82330; 82533 91; 82803; 82948; 83036; 83605; 83735; 83880; 83930; 83935; 84100; 84145 90; 84443; 84478; 84484; 85025; 85027; 85610; 85730; 86021 90; 86022 90; 86038; 86141; 86200 90; 86235; 86695 90; 86696 90; 87040; 87070; 87102; 87106; 87116; 87205; 87206; 87252 90; 87254 90; 87493; 87641; 88108; 93005; 93306; 94002; 94003; 94640; 94640 76; 94760; 94799; 95819; 99202; 99281; 99285; C1751; J0295; J1630; J1644; J1815; J1940; J2060; J2543; J2704; J2920; J2930; J3010; J3370; J7030; J7050; S0028